=== PATIENT | female | born 1980 | race African-American/Black ===

== ENCOUNTER 2019-02-18 17:37 | Emergency (ER) | payer MEDICAID, OTHER ==
[~2019-02-18] VITALS: Ht 157.5 cm; Wt 64.9 kg
[~2019-02-18 17:37] MED LIST: IBUPROFEN800 M1 PO; NKM; NORCO 5-325 TA1 EACH ORAL; ZOFRAN4 MG ORAL
[2019-02-18] MEDS ORDERED: NKM (17:44)
--- NOTE | 2019-02-18 17:45 | NUR ---
ED Nurse Note: Pt came into the ER w/ complaints of cough and sore throat x 2 days. No fever upon arrival to ED. Pt denies having pain. Pt is A + O x4. Ambulatory. Skin warm to touch.
[2019-02-18 17:46] VITALS: BP 125/91
--- NOTE | 2019-02-18 18:11 | Emergency Room Report ---
History of Present Illness General Chief Complaint: Upper Respiratory Illness Source: Patient Present Illness HPI 38-year-old female presents to the emergency department complaining of 9 out of 10 in severity sore throat with nasal congestion and rhinorrhea times almost 2 weeks. Patient denies fevers or chills she reports cough with some phlegm she states cough is worse at night and states that she has been utilizing nasal spray without relief. Patient denies recent travel or ill contacts. She denies headache, neck pain/stiffness, photophobia or swollen tender lymph nodes. She states her pain is worse with swallowing and states that drinking cold fluids helps relieve her symptoms. No other aggravating or relieving factors. Allergies: Coded Allergies: No Known Allergies (Unverified , 03/08/14) Patient History Past Medical History: see triage record Past Surgical History: none Pertinent Family History: none : 1 Reviewed Nursing Documentation: PMH: Agreed; PSxH: Agreed Review of Systems All Other Systems: negative except mentioned in HPI Physical Exam Vital Signs Date Time Temp Pulse Resp B/P (MAP) Pulse Ox O2 Delivery O2 Flow Rate FiO2 02/18/19 17:41 99.0 97 19 129/93 95 Room Air 02/18/19 17:46 95 Sp02 EP Interpretation: reviewed, normal General Appearance: no apparent distress, alert, GCS 15, non-toxic Head: normocephalic, atraumatic Eyes: bilateral eye normal inspection, bilateral eye PERRL ENT: hearing grossly normal, normal voice, TMs + canals normal, uvula midline, nasal congestion, other - cobblestone appearance of the posterior pharynx with postnasal drainage noted no tonsillar exudates, tonsillar swelling or deviation of the uvula noted. Neck: full range of motion Respiratory: lungs clear, normal breath sounds, no wheezing, speaking full sentences Cardiovascular #1: regular rate, rhythm Musculoskeletal: back normal, gait/station normal, normal range of motion, non- tender Neurologic: alert, oriented x3, responsive, motor strength/tone normal, sensory intact, speech normal, grossly normal Psychiatric: judgement/insight normal Skin: normal color, no rash, warm/dry, well hydrated Lymphatic: no adenopathy Medical Decision Making PA Attestation Dr. Antony is my supervising Physician whom patient management has been discussed with. Diagnostic Impression: Primary Impression: Upper respiratory infection Qualified Codes: J06.9 - Acute upper respiratory infection, unspecified Additional Impression: Post-nasal drainage ER Course 38-year-old female presents to the emergency department complaining of 9 out of 10 in severity sore throat with nasal congestion and rhinorrhea times almost 2 weeks. Patient denies fevers or chills she reports cough with some phlegm she states cough is worse at night and states that she has been utilizing nasal spray without relief. Patient denies recent travel or ill contacts. She denies headache, neck pain/stiffness, photophobia or swollen tender lymph nodes. She states her pain is worse with swallowing and states that drinking cold fluids helps relieve her symptoms. No other aggravating or relieving factors. Ddx considered but are not limited to: pharyngitis, strep, H[employer]MER [employer]IVER, ludwigs angina, URI Vital signs: are WNL, pt. is afebrile H&PE are most consistent with: ST secondary to PND. ORDERS: None required at this time as the diagnosis is clinical ED INTERVENTIONS: none required at this time. DISCHARGE: At this time pt. is stable for d/c to home. Will provide printed patient care instructions, and any necessary prescriptions. Care plan and follow up instructions have been discussed with the patient prior to discharge. Last Vital Signs Date Time Temp Pulse Resp B/P (MAP) Pulse Ox O2 Delivery O2 Flow Rate FiO2 02/18/19 17:46 95 20 Room Air 95 02/18/19 17:46 98.9 125/91 95 Disposition: HOME, SELF-CARE Condition: Stable Scripts Guaifenesin (Guaifenesin) 1,200 Mg Tab.er.12h 1200 MG PO Q12HR, #20 TAB Prov: Romi Lobo 02/18/19 Cetirizine Hcl/Pseudoephedrine (ZYRTEC-D TABLET) 1 Each Tab.er.12h 1 EACH ORAL Q12HR, #20 TAB Prov: Romi Lobo 02/18/19 Codeine/Promethazine Hcl* (PROMETHAZINE-CODEINE SYRUP*) 118 Ml Syrup 5 ML ORAL Q6H PRN for For Cough, #120 ML 0 Refills Prov: Romi Lobo 02/18/19 Patient Instructions: Cough, Adult, [id number] Additional Instructions: Take medications as directed. Follow up with a Primary Care Provider in 3-5 days, even if your symptoms have resolved. --Please review list of primary care clinics, if you do not already have a primary care provider Return sooner to ED if new symptoms occur, or current symptoms become worse. Do not drink alcohol, drive, or operate heavy machinery while taking Cough Syrup as this may cause drowsiness. - Please note that this Emergency Department Report was dictated using [employer] circuit screen watcher technology software, occasionally this can lead to erroneous entry secondary to interpretation by the dictation equipment. Romi Lobo Feb 18, 2019 18:11
[2019-02-18] MEDS ORDERED: PROMETHAZINE-C118 M1 ORAL (18:13)
[2019-02-18] MEDS ORDERED: GUAIFENESIN1200 MG PO (18:13)
[2019-02-18] MEDS ORDERED: ZYRTEC-D TABLE1 EACH ORAL (18:13)
[2019-02-18 18:24] VITALS: BP 123/92
--- NOTE | 2019-02-18 18:25 | NUR ---
ER DISCHARGE NOTE: Patient is cleared to be discharged per ERMD, pt is aox4, on room air, with stable vital signs. pt was given dc and prescription instructions, pt was able to verbalize understanding, pt id band removed without complications. pt is able to ambulate with steady gait. pt took all belongings.
== END 2019-02-18 19:00 | disposition home or self-care (01) ==
LOC: EMR 18:50
DX: J06.9 Acute upper respiratory infection, unspecified (principal); R09.82 Postnasal drip
CPT/HCPCS: 99282

== ENCOUNTER 2019-03-17 11:30 | Emergency (ER) | payer OTHER ==
[~2019-03-17] VITALS: Ht 157.5 cm; Wt 63.5 kg
[~2019-03-17 11:30] MED LIST changes: +GUAIFENESIN1200 MG PO; +PROMETHAZINE-C118 M1 ORAL; +ZYRTEC-D TABLE1 EACH ORAL
[2019-03-17 11:35] VITALS: BP 127/93
[2019-03-17] MEDS: Cyclobenzaprine 10mg Tab ORAL ONE ×2 (11:45→11:55)
[2019-03-17] MEDS ORDERED: Ketorolac 60mg Inj IM ONE (11:45)
--- NOTE | 2019-03-17 11:45 | NUR ---
ED Nurse Note: Patient reports she fell at work 3 months ago and since then, have been having back pain patient also reports coughing and runny nose for 2 days. patient is alert awake x4 ambulatory, breathing unlabored and even
--- NOTE | 2019-03-17 12:06 | NUR ---
ED Nurse Note: UA sent to lab
[2019-03-17 12:18] LABS: APPEARANCE,URINE SLIGHTLY CLOUDY; BILIRUBIN, URINE NEGATIVE (NEGATIVE); GLUCOSE, URINE (UA) NEGATIVE (NEGATIVE); KETONES,URINE 1+ (NEGATIVE); LEUKOCYTE ESTERASE ,URINE 1+ (NEGATIVE); NITRITE,URINE NEGATIVE (NEGATIVE); PH,URINE 6 (4.5-8.0); PROTEIN,URINE NEGATIVE (NEGATIVE); UROBILINOGEN,URINE 4 MG/DL (0.0-1.0)
[2019-03-17 12:28] LABS: COLOR,URINE YELLOW
--- NOTE | 2019-03-17 12:57 | Emergency Room Report ---
History of Present Illness General Chief Complaint: Lower Back Pain or Injury Source: Patient Present Illness HPI This patient has 2 complaints. This patient has a history of several incidents of low back injury. She is being treated by her primary care physician with rehabilitation, tramadol and muscle relaxants. She does have an appointment tomorrow for follow-up. She states that she woke up this morning and her entire back with stiffness and very painful with any movement. She is very frustrated and quit her job because she has been debilitated by her pain. She denies new symptoms. She states that she recently underwent x-rays of her back and her chest. She does not want to get any more x-rays she states she has been x-rayed multiple times. She denies weakness. She denies tingling or numbness. She denies loss of bowel or bladder control. She denies fever or chills. She also states that for the past couple days she has also had runny nose, cough and congestion. She denies chest pain or shortness of breath. She denies sore throat. She denies fever or chills. She has no other complaints. Allergies: Coded Allergies: No Known Allergies (Unverified , 03/08/14) Patient History Past Medical History: asthma, other - HCV, Hyperthyroid Social History: Reports: smoking - Quit 3 days ago; Denies: alcohol use, drug use Reviewed Nursing Documentation: PMH: Agreed; PSxH: Agreed Review of Systems All Other Systems: negative except mentioned in HPI Physical Exam Vital Signs Date Time Temp Pulse Resp B/P (MAP) Pulse Ox O2 Delivery O2 Flow Rate FiO2 03/17/19 11:35 98.2 83 20 127/93 99 Room Air Sp02 EP Interpretation: reviewed, normal General Appearance: no apparent distress, alert, GCS 15, non-toxic Head: normocephalic, atraumatic Eyes: bilateral eye normal inspection, bilateral eye PERRL ENT: hearing grossly normal, normal pharynx, no angioedema, normal voice Neck: full range of motion, supple/symm/no masses Respiratory: chest non-tender, lungs clear, normal breath sounds, no respiratory distress, no retraction, no accessory muscle use, speaking full sentences Cardiovascular #1: regular rate, rhythm, no edema Rectal: deferred Musculoskeletal: gait/station normal, normal range of motion, tender - TTP along the bilateral paraspinal m of the low back. Neurologic: alert, oriented x3, responsive, motor strength/tone normal, sensory intact, speech normal Psychiatric: judgement/insight normal, memory normal, mood/affect normal, no suicidal/homicidal ideation Skin: normal color, no rash, warm/dry, well hydrated Medical Decision Making Diagnostic Impression: Primary Impression: Low back pain Additional Impression: URI (upper respiratory infection) ER Course This patient has a clinical presentation consistent with muscle spasm and chronic mechanical low back pain. There are no red flags on physical exam or history that would make me concerned for underlying fracture. Therefore, I do not feel that I need to obtain imaging studies. The patient has pain with range of motion and has tenderness to palpation along the muscle. There is no evidence of compartment syndrome. There is no neurologic deficit. The patient was instructed on supportive home measures. This patient has a clinical presentation with upper respiratory tract infection. The evaluation was very reassuring with a normal lung exam, no respiratory distress, normal pulse oximetry. I am not concerned for pneumonia in this patient. This is most likely viral and will not need antibiotic therapy. I will treat supportively with cough suppressants. No emergency medical condition was identified. No emergency medical condition was identified. The patient was given return precautions and followup instructions. Laboratory Tests Test 03/17/19 11:53 Urine Color Yellow Urine Appearance Slightly cloudy Urine pH 6 (4.5-8.0) Urine Specific [place] 1.015 (1.005-1.035) Urine Protein Negative (NEGATIVE) Urine Glucose (UA) Negative (NEGATIVE) Urine Ketones 1+ (NEGATIVE) H Urine Blood Negative (NEGATIVE) Urine Nitrite Negative (NEGATIVE) Urine Bilirubin Negative (NEGATIVE) Urine Urobilinogen 4 MG/DL (0.0-1.0) H Urine Leukocyte Esterase 1+ (NEGATIVE) H Urine RBC 0 /HPF (0 - 2) Urine WBC 2-4 /HPF (0 - 2) Urine Squamous Epithelial Cells Many /LPF (NONE/OCC) H Urine Bacteria Few /HPF (NONE) Urine HCG, Qualitative Negative (NEGATIVE) Last Vital Signs Date Time Temp Pulse Resp B/P (MAP) Pulse Ox O2 Delivery O2 Flow Rate FiO2 03/17/19 12:25 98.2 03/17/19 11:35 83 20 99 Room Air 03/17/19 11:35 127/93 Status: improved Disposition: HOME, SELF-CARE Condition: Improved Referrals: [facility] (PCP) Patient Instructions: Low Back Sprain With [facility]hab[facility] Nena Sellers DO March 17, 2019 12:57
[2019-03-17] MEDS ORDERED: LIDODERM700 M1 TOPIC (13:23)
[2019-03-17] MEDS ORDERED: GUAIFENESIN-CO118 M1 ORAL (13:23)
[2019-03-17 13:25] VITALS: BP 127/93
== END 2019-03-17 13:25 | disposition home or self-care (01) ==
LOC: EMR 12:50
DX: M54.5 Low back pain (principal); J06.9 Acute upper respiratory infection, unspecified; F17.200 Nicotine dependence, unspecified, uncomplicated; E05.90 Thyrotoxicosis, unspecified without thyrotoxic crisis or storm
CPT/HCPCS: 81003; 81025; 96372; 99283

== ENCOUNTER 2019-05-28 11:06 | Emergency (ER) | payer OTHER ==
[~2019-05-28] VITALS: Ht 157.5 cm; Wt 63.5 kg
[~2019-05-28 11:06] MED LIST changes: +GUAIFENESIN-CO118 M1 ORAL; +LIDODERM700 M1 TOPIC
[2019-05-28 11:30] VITALS: BP 114/80
--- NOTE | 2019-05-28 11:32 | NUR ---
ED Nurse Note: pt walked in due to cough x 2 days, denies medication. and also pt is complaining of lower back pain from a fall happend in december. ermd on bedside. will continue to monitor
--- NOTE | 2019-05-28 11:56 | Emergency Room Report ---
History of Present Illness General Chief Complaint: Upper Respiratory Illness Source: Patient Present Illness HPI 28-year-old female presents with cough, x1 day, worse at night, no aggravating or relieving factors, severity is moderate, she states a dry cough, no fever no chills, she also endorses chronic back pain since she injured herself in December, requesting pain medication, no bowel bladder retention/incontinence, no perianal numbness, patient presents for multiple complaints. Allergies: Coded Allergies: No Known Allergies (Unverified , 03/08/14) Patient History Past Medical History: see triage record Last Menstrual Period: 05/21/19 Now: No Reviewed Nursing Documentation: PMH: Agreed; PSxH: Agreed Nursing Documentation-PMH Past Medical History: No History, Except For Review of Systems Constitutional: Denies: chills, fever Eye: Denies: blurred vision, double vision ENT: Denies: throat pain, nasal discharge Respiratory: Reports: cough, shortness of breath; Denies: wheezing Cardiovascular: Reports: chest pain; Denies: palpitations Gastrointestinal: Denies: abdominal pain, diarrhea, nausea, vomiting Genitourinary: Denies: dysuria, pain Musculoskeletal: Denies: back pain, muscle pain Skin: Denies: rash, lesions Neurological: Denies: headache, focal weakness Hematologic/Lymphatic: Denies: easy bleeding, easy bruising All Other Systems: negative except mentioned in HPI Physical Exam Vital Signs Date Time Temp Pulse Resp B/P (MAP) Pulse Ox O2 Delivery O2 Flow Rate FiO2 05/28/19 11:18 98.2 78 17 114/80 (91) 98 Room Air Sp02 EP Interpretation: reviewed, normal General Appearance: well appearing, no apparent distress, alert Head: normocephalic, atraumatic Eyes: bilateral eye PERRL, bilateral eye EOMI ENT: uvula midline, moist mucus membranes Neck: supple, thyroid normal, supple/symm/no masses Respiratory: lungs clear, no respiratory distress, no retraction, no accessory muscle use Cardiovascular #1: normal peripheral pulses, regular rate, rhythm, no edema, no gallop, no murmur Gastrointestinal: non tender, soft, no guarding, no rebound Musculoskeletal: normal inspection Neurologic: alert, oriented x3 Psychiatric: mood/affect normal Skin: no rash, warm/dry Medical Decision Making Diagnostic Impression: Primary Impression: Upper respiratory infection Additional Impression: Back pain ER Course Clinically this patient can be ruled out for serious pathology given there is a completely normal neurological exam, no history of IV drug use, and no history of bowel or bladder incontinence, no perianal numbness/tingling, no constipation or urinary retention. She had an MRI that shows disc herniation, results were reviewed, no red flags The patient was able to ambulate and be discharged in stable condition with anticipatory guidance provided. Patient also complains of upper respiratory symptoms, no acute intervention at this time Last Vital Signs Date Time Temp Pulse Resp B/P (MAP) Pulse Ox O2 Delivery O2 Flow Rate FiO2 05/28/19 11:30 78 17 Room Air 05/28/19 11:30 98.2 114/80 98 Disposition: HOME, SELF-CARE Condition: Stable Scripts Famotidine (PEPCID AC) 20 Mg Tablet 20 MG PO BID, #60 TAB Prov: Alfred Xiong MD 05/28/19 Methocarbamol* (ROBAXIN-750*) 750 Mg Tablet 750 MG PO QID, #28 TAB 0 Refills Prov: Alfred Xiong MD 05/28/19 Referrals: [facility] (PCP) Patient Instructions: Back Pain, Adult, [id number], Upper Respiratory Infection, Adult Additional Instructions: The patient was provided with discharge instructions, notified to follow-up with a primary care doctor and or specialist in the next 24-48 hours, and to return to the ED if they have worsening of their symptoms. Please note that this report is being documented using [employer] technology. This can lead to erroneous entry secondary to incorrect interpretation by the dictating instrument. Alfred Xiong MD May 28, 2019 11:56
[2019-05-28] MEDS ORDERED: PEPCID AC20 M2 PO (12:00)
[2019-05-28] MEDS ORDERED: Dexamethasone 4mg/ml vial ORAL ONE (12:00)
[2019-05-28] MEDS ORDERED: ROBAXIN-750750 MG PO (12:00)
[2019-05-28 12:25] VITALS: BP 114/80
== END 2019-05-28 12:19 | disposition home or self-care (01) ==
LOC: EMR 11:43
DX: J06.9 Acute upper respiratory infection, unspecified (principal); M54.9 Dorsalgia, unspecified
CPT/HCPCS: 99282; J1100